=== PATIENT | male | born 1965 | race Caucasian/White ===

== ENCOUNTER 2022-06-25 10:13 | Outpatient (REF) | payer OTHER, SELFPAY ==
[2022-06-25 10:46] LABS: MANUAL DIFF FLAG NO
[2022-06-25 10:50] LABS: Basophils Percent Auto 0.5 % (0-2); Eosinophils Absolute Auto 0.2 X10*3/uL (0.0-0.4); Eosinophils Percent Auto 3.4 % (0-4); Hematocrit 41.1 % (42.0-52.0); Hemoglobin 14.1 g/dl (14.0-18.0); Imm Gran Abs Auto 0.01 X10*3/uL (0.00-0.03); Imm Gran Pct Auto 0.2 % (0.0-0.4); Lymphocytes Absolute Auto 1.4 X10*3/uL (1.2-4.9); Lymphocytes Percent Auto 32.2 % (20-40); Mean Corpuscular HGB Conc 34.3 g/dl (31.0-36.0); Mean Corpuscular Volume 90.3 fL (80.0-98.0); Mean Platelet Volume 9.9 fL (9.4-12.4); Monocytes Absolute Auto 0.4 X10*3/uL (0.1-1.2); Monocytes Percent Auto 9.1 % (2-11); Neutrophils Absolute Auto 2.4 x10*3/uL (2.0-8.3); Neutrophils Percent Auto 54.6 % (45-73); Platelet Count 191 X10*3/uL (160-400); Red Blood Count 4.55 X10*6/uL (4.60-5.80); Red Cell Distribution Width 12.5 % (11.0-16.0); White Blood Count 4.4 X10*3/uL (4.8-10.8)
[2022-06-25 11:34] LABS: Alanine Aminotransferase 22 U/L (0-40); Albumin Level 4.1 g/dL (3.5-5.0); Alkaline Phosphatase 71 U/L (39-117); Anion Gap 12 (12-20); Aspartate Amino Transferase 23 U/L (5-37); Bilirubin Total 0.8 mg/dL (0.0-1.0); Blood Urea Nitrogen 11 mg/dL (9-16); Calcium 8.8 mg/dL (8.4-10.2); Carbon Dioxide 26 mmol/L (22-29); Chloride 106 mmol/L (96-108); Cholesterol 208 mg/dL; Estimated Glomerular Filt Rate > 60; Glucose Fasting 100 mg/dL (60-99); HDL Cholesterol 57 mg/dL; LDL Cholesterol Calculated 135 mg/dl; Potassium 4.3 mmol/L (3.3-5.1); Sodium 140 mmol/L (135-145); Total Protein 7.1 g/dL (6.5-8.0); Triglycerides 83 mg/dL
[2022-06-25 11:40] LABS: Prostate Specific Antigen Scr 15.72 ng/mL (<0.05-4.0); Thyroid Stimulating Hormone 3.17 uIU/mL (0.32-4.0)
== END 2022-06-25 10:14 | disposition home or self-care (01) ==
LOC: HO.10HDL 10:13
PROVIDERS: Visit Provider Internal Medicine
DX: Z00.00 Encounter for general adult medical examination without abnormal findings (principal); Z12.5 Encounter for screening for malignant neoplasm of prostate; Z13.31 Encounter for screening for depression; I10 Essential (primary) hypertension; M54.59 Other low back pain
CPT/HCPCS: 36415; 80053; 80061; 84153; 84443; 85025

== ENCOUNTER → 2022-08-15 13:58 | Outpatient (BNVA) | payer OTHER, SELFPAY | PROVIDERS: PCP Internal Medicine; Visit Provider Urology | DX: N42.9 Disorder of prostate, unspecified (principal); R97.20 Elevated prostate specific antigen [PSA] | CPT/HCPCS: 51798 ==

== ENCOUNTER 2022-09-16 08:01 | Day surgery (SDC) | payer OTHER, SELFPAY ==
[2022-09-11 09:33] VITALS: BMI 26.2
[2022-09-16] VITALS (12 sets, daily range): BP systolic 90–128; BP diastolic 38–78; PULSE 67–79; RESP 16–18; TEMP 36.3–36.7; O2SAT 94–98
--- NOTE | 2022-09-16 08:44 | MHC.SHP ---
Pre-Procedural Eval Section A Date of Service: 09/16/22 The patient is an INPATIENT: No The History & Physical has been completed within 30 days and I have reviewed it.: Yes Section B Chief Complaint: Elevated prostate specific antigen [PSA] Allergies: Allergies Allergy/AdvReac Type Severity Reaction Status Date / Time fexofenadine [From Rivka-D] AdvReac Unknown tachycardia Verified 09/16/22 08:07 pseudoephedrine AdvReac Unknown tachycardia Verified 09/16/22 08:07 [From Rivka-D] Plan Diagnosis/Plan: Unchanged I have reviewed the history and physical and performed a pertinent physical examination on my patient. No changes have occurred unless specified. Transrectal Ultrasound guided biopsy of the prostate. Discussed risks to include but not limited to pain, blood in stool, urine and semen, septicemia, need to repeat biopsy. Time Spent With Patient Time: Total time managing care of this patient today ____ minutes.
[2022-09-16] MEDS: Lactated Ringers 1,000 ML 80 ML IVCONT (08:49)
--- NOTE | 2022-09-16 09:59 | P.CONAN_ITS ---
HPI - Anesthesia Eval Consult details Narrative: elevated psa PMFSH Active Problems Active Problems: All Active Problems (Updated 08/15/22 @ 14:52 by Traci Ferrara MD) Prostate irregularity (Acute) Elevated PSA (Acute) Past Medical History Medical History (Updated 08/15/22 @ 14:52 by Traci Ferrara MD) Elevated PSA Family History Family history of problems with anesthesia: No Surgical History Surgical History (Updated 09/11/22 @ 09:38 by Stacey Romero RN) History of surgery on arm History of tonsillectomy Hx of colonoscopy History of Problems with Anesthesia: No Social History Social History Are you a primary critical care nurse to a significant other at home: No Do you presently have visiting nurse or other home services: No Have you been hit, kicked, punched, or otherwise hurt by someone within the past year? If so, by whom?: No Are you DNR?: No Advance Directives: No Advance Directives Information Provided: Yes Advance Directives on File: No Poor oral hygiene: Yes (missing teeth) Meds Allergies Allergy/AdvReac Type Severity Reaction Status Date / Time fexofenadine [From Rivka-D] AdvReac Unknown tachycardia Verified 09/16/22 08:07 pseudoephedrine AdvReac Unknown tachycardia Verified 09/16/22 08:07 [From Rivka-D] Active Medications: Current Medications Lactated Ringer's (Lr) 1,000 mls @ 80 mls/hr IVCONT .[id number] BELIA Last Admin: 09/16/22 08:49 Dose: 80 mls/hr Exam Exam Date and Time: September 16, 2022 0959 Height,Weight and Vital Signs: Height 5 ft 5 in Weight 71.668 kg Last Vital Signs Temp 98.0 F 09/16/22 08:09 Pulse 71 09/16/22 08:09 Resp 16 09/16/22 08:09 BP 128/78 09/16/22 08:09 Pulse Ox 97 09/16/22 08:09 O2 Del Method Room Air 09/16/22 08:09 Airway Mallampati Class: I TM Dist: >3cm Neck ROM: Full Loose/Missing/Broken Teeth: No Heart: rr Lungs: cta Assessment and Plan Assessment Anesthesia Assessment: Anesthesia Plan Discussed Final Anesthetic Review Family History of Problems with Anesthesia: No History of Problems with Anesthesia: No NPO: Yes ASA Class: I and III Final Preanesthetic Review: No Changes in Pt Med Stat, Meds/Allgs Chart Revie thu, Consent Obtained/Reviewed and Anes Risks/Benef Reviewed Patient Risk: Low Procedure Risk: Low Anesthetic Plan Anesthetic Plan: GA Disposition: Standard PACU
--- NOTE | 2022-09-16 10:25 | W.PM.OPN ---
Operative Note Operative Note Date of Service: 09/16/22 Narrative: PreOperative Diagnosis:? ? Elevated PSA Post Operative Diagnosis:??Elevated PSA Procedure:?1. Transrectal ultrasound guided biopsy of the prostate 12 core 2. Transrectal ultrasound measurement of prostate 3. Transrectal ultrasound guided pudendal nerve block Surgeon:?Dr Traci Ferrara Anesthesia:? GENERAL Indications for procedure: Elevated PSA Procedure: After informed consent was verified the patient was brought into the procedure room and placed on the procedure table in left lateral position. Patient identity confirmed. Preoperative antibiotics confirmed. Safety pause time-out performed. Digital rectal exam performed to dilate rectal sphincter, iodine mixed with lubricant jelly 30 cc placed per rectum. Ultrasound probe was placed per rectum. The prostate was visualized. The prostate was measured height [] cm, width [] cm, length [] cm with a volume of 13 cm. An ultrasound guided pudendal nerve block was performed using 10 cc of 1% lidocaine. A 12 core biopsy was performed from the left base, left mid, left apex and right base, mid, apex 2 biopsies from each section. The ultrasound probe was removed and digital palpation of the prostate for 1-2 minutes for hemostasis was performed. The patient tolerated the procedure well. The patient is instructed to complete his antibiotics and to call for any concerns. Complications: None
[2022-09-16] MEDS: Acetaminophen 325 MG TABLET 650 MG PO (11:10)
[2022-09-16] MEDS: oxyCODONE HCl Immed Release 5 MG TABLET PO (11:11)
[2022-09-16] MEDS: fentaNYL citrate/PF 100 MCG/2 ML VIAL 25 MCG IVPUSH (11:12)
== END 2022-09-16 13:45 | disposition home or self-care (01) ==
PROVIDERS: PCP Internal Medicine; Visit Provider Urology
PROC: (CPT 55700; principal; 2022-09-16 09:30)
DX: C61 Malignant neoplasm of prostate (principal); R97.20 Elevated prostate specific antigen [PSA]; R39.198 Other difficulties with micturition; R33.9 Retention of urine, unspecified; Z88.8 Allergy status to other drugs, medicaments and biological substances
CPT/HCPCS: 55700; 76942; 88305; J1956; J2250; J2405; J3010

== ENCOUNTER → 2022-10-03 15:51 | Outpatient (BNVA) | payer OTHER, SELFPAY | PROVIDERS: PCP Internal Medicine; Visit Provider Urology ==

== ENCOUNTER → 2022-10-22 11:01 | Outpatient (REF) | payer OTHER, SELFPAY ==
--- NOTE | ~2022-10-22 | NM_ITS ---
EXAMINATION: NM BONE SCAN OF THE WHOLE BODY CLINICAL INFORMATION: Malignant neoplasm of prostate. COMPARISON: No existing relevant imaging study available. TECHNIQUE: Multiple gamma scintillation camera images of the whole body were performed 3.5 hours following the intravenous administration of 26 mCi Tc-99m MDP. The radiotracer was injected through left antecubital superficial vein without complications. FINDINGS: In the head, no suspicious focal lesion. Incidental note is made of asymmetric focal increased radiotracer activity in the region of the right maxilla/alveolar process medially, likely represent changes secondary to odontogenic disease. Please correlate clinically. In the thoracic cage and upper extremities, unremarkable. In the spine, unremarkable. In the pelvis, unremarkable. In the lower extremities, unremarkable. No other definite bony abnormalities are noted. The urinary bladder and faint visualization of both kidneys are noted. NM/NM bone scan whole body IMPRESSION: 1. No scintigraphic evidence of osseous metastatic disease. 2. Incidental note is made of asymmetric focal increased radiotracer activity in the region of the right maxilla/alveolar process medially, likely represent changes secondary to odontogenic disease. 3. Follow-up PSMA PET/CT study may be considered for further clarification, if clinically appropriate.
== END ==
LOC: HO.NUCMED 11:01
PROVIDERS: PCP Internal Medicine; Visit Provider Urology
DX: C61 Malignant neoplasm of prostate (principal); C79.51 Secondary malignant neoplasm of bone
CPT/HCPCS: 78306; A9503

== ENCOUNTER → 2022-11-10 08:50 | Outpatient (BNVA) | payer OTHER, SELFPAY | PROVIDERS: PCP Internal Medicine; Visit Provider Urology ==

== ENCOUNTER 2022-12-31 13:01 | Outpatient (AMB) | payer OTHER, SELFPAY ==
--- NOTE | 2022-12-31 13:10 | AM.OFFVISNUR ---
Intake Intake Visit Reasons: Firmagon Injection Allergies fexofenadine [From Rivka-D] Adverse Reaction (Unknown, Verified 10/03/22 15:55) tachycardia pseudoephedrine [From Rivka-D] Adverse Reaction (Unknown, Verified 10/03/22 15:55) tachycardia Office Meds degarelix Performing Provider: Traci Ferrara MD Administered by: Arcelia Aguilar RN on 12/31/22 13:10 Dose Route Admin Location Lot Number Expiration Date [facility] [employer] 240 mg subcut right arm [id number] 11/29/24 [address]-8 [facility] Coding Diagnoses Assessment & Plan Assessment & Plan Orders: Orders AMB Degarelix Injection Practice Supplied Today C61 - Malignant neoplasm of prostate
== END 2022-12-31 13:32 | disposition home or self-care (01) ==
PROVIDERS: PCP Internal Medicine; Visit Provider Urology
DX: C61 Malignant neoplasm of prostate (principal)
CPT/HCPCS: 96402

== ENCOUNTER → 2022-12-31 13:01 | Outpatient (BNVA) | payer OTHER, SELFPAY | PROVIDERS: PCP Internal Medicine; Visit Provider Urology | DX: C61 Malignant neoplasm of prostate (principal) | CPT/HCPCS: 96402; J9155 ==

== ENCOUNTER 2024-02-27 13:07 | Emergency (ER) | payer OTHER, SELFPAY ==
--- NOTE | ~2024-02-27 | XR_ITS ---
EXAMINATION: XR KNEE, LEFT CLINICAL INFORMATION: Left knee pain. Patient felt snapping in knee. COMPARISON: None available. TECHNIQUE: Four views of the left knee. FINDINGS: No fracture or joint effusion appreciated. Well-circumscribed, benign-appearing sclerotic density involving the posterior distal metaphyseal cortex of the femur. No evidence of periosteal reaction. Alignment is anatomic. Joint spaces appear maintained. No abnormal soft tissue calcification. XR/XR knee LT 3V IMPRESSION: No acute finding. Electronically signed by: Zach Mcduffie MD 02/27/2024 02:10 PM EDT
[2024-02-27 13:10] VITALS: BP 131/70; PULSE 76; RESP 16; TEMP 36.5; O2SAT 99; BMI 24.1
--- NOTE | 2024-02-27 13:12 | ED.LOWEXIN ---
HPI - Extremity Injury (Lower) General Chief Complaint: Extremity Injury, Lower Stated Complaint: pain above l knee no inj Time Seen by Provider: 02/27/24 13:35 Source: patient Mode of arrival: ambulatory Limitations: no limitations History of Present Illness ED Provider: negro [facility] Narrative: Patient is a 59-year-old male presenting to the ED with complaint of left knee pain after bending over to pet his dog. States pain increases with flexion. He has been able to bear weight. Denies any numbness/tingling. complaint: knee injury Related Data Allergies Allergy/AdvReac Type Severity Reaction Status Date / Time fexofenadine [From Rivka-D] AdvReac Unknown tachycardia Verified 02/27/24 13:13 pseudoephedrine AdvReac Unknown tachycardia Verified 02/27/24 13:13 [From Rivka-D] morphine AdvReac Vomiting Verified 02/27/24 13:14 Review of Systems Review of Systems: As per HPI. Yes all other systems are reviewed and are negative Constitutional: Constitutional: Reports as per HPI PMFSH Past Medical History Medical History Elevated PSA Surgical History History of surgery on arm History of tonsillectomy Hx of colonoscopy Social History Social History Are you a primary gericare aide to a significant other at home: No Do you presently have visiting nurse or other home services: No Advance Directives: No Advance Directives Information Provided: No Do you have a plan to hurt others: No Plan Physical Exam Vital Signs: Vital Signs: Last Vital Signs Temp 97.7 F 02/27/24 13:10 Pulse 76 02/27/24 13:10 Resp 16 02/27/24 13:10 BP 131/70 02/27/24 13:10 Pulse Ox 99 02/27/24 13:10 O2 Del Method Room Air 02/27/24 13:10 BMI result Body Mass Index 24.1 Vital signs have been reviewed and appear to be correct. Blood pressure normal. Heart rate normal. Respiratory rate normal. Temperature normal. Oxygen saturation normal. Const: General: cooperative, healthy appearing and no acute distress Orientation/consciousness: oriented to person, oriented to place, oriented to time and patient oriented x3 Limitations: no limitations HEENT: Head: Yes normocephalic and Yes atraumatic Ears: external ears normal General nose exam: Normal external nose present Face and sinus: Yes face symmetric Mouth: oropharynx normal and moist mucous membranes Throat: Yes uvula midline Eyes: Pupils: Equal, round and reactive pupils present Neck: Neck: Yes normal visual inspection and Yes supple Resp: Effort & Inspection: normal respiratory effort and able to speak in complete sentences Auscultation: clear to auscultation bilaterally Cardio: Rate: regular rate Rhythm: regular rhythm Heart sounds: S1 normal heart sound present and S2 normal heart sound present GI: Palpation (GI): Soft to palpation and nontender Auscultation: normoactive bowel sounds : General: Yes no CVA tenderness Back/Spine/Pelvis: Back: no CVA tenderness Skin: General skin exam: elasticity normal and turgor normal Neuro: General: oriented to person, oriented to place, oriented to time, patient oriented x3, moves all extremities, no focal motor deficits and CN's II-XI intact bilaterally Cranial nerves: Yes Equal, round and reactive pupils present Cognition (Neuro): normal cognition Extrem: General: Yes full ROM, Yes no pedal edema and Yes no calf tenderness Left lower extremity: knee Details: normal to inspection, tenderness Location: of the proximal fibula, swelling Location: of the proximal fibula, normal ROM and knee ligament exam normal Psych: Mental Status: mental status grossly normal Affect: normal affect Thought process: Normal thought process present Course Course Course Narrative: This is an RME: Additional HPI, ROS, PE not included below will be deferred to primary provider. RME assessment and note performed by: Tiara Jain PA-C This is a 56-qmzs-kso-male, with a hx of prostate cancer, who presents to the ER with complaints of left knee pain since yesterday. Pt was bending down to greet his dog and felt a pop in his left leg, has been able to partially bear weight on his left knee. Plan: xray knee Medical Decision Making Medical Decision Making MDM Narrative: Patient is a 59-year-old male presenting to the ED with complaint of left knee pain after bending over to pet his dog. On exam patient is awake, A+Ox3, VS WNL, afebrile, normal neurological exam without focal deficits, physical exam findings as above. Given reported symptoms and physical exam findings, initial differential includes strain, sprain, tendonitis. Unlikely fracture. X-ray knee notable for no acute fractures. My interpretation is in agreement with the radiologist's interpretation. Patient placed in PUSHPA wrap in ED. Discussed that he will need to follow up with ortho. States he has f/u with PCP for same complaint on the 10th. Return precautions discussed. Tylenol/ibuprofen. patient verbalized understanding of and agreement with plan. Differential Diagnosis Differential Diagnoses: The differential diagnosis associated with the presentation includes as per mdm Independent Interpretation I performed an independent interpretation of an: Plain X-Ray Interpretation: no acute fractures left knee Radiology Impression Discussion of test interpretation with radiology: I have reviewed the radiologist's reading. Radiologist Impression: XR/XR knee LT 3V IMPRESSION: No acute finding. External Record Review External record reviewed: Inpatient record, Office record and Outpatient record Discharge Plan Discharge Clinical Impression: Pain of left fibula Patient Disposition: Home, Self-Care Instructions: Knee Pain (ED) Additional Instructions: You have been evaluated in the emergency department today for knee pain. Your evaluation did not find evidence of medical conditions requiring emergent intervention at this time. We have provided an PUSHPA wrap for you to use while your knee heals. Please rest, ice, and elevate your leg, and resume normal activities as tolerated. We recommend you take 600mg ibuprofen every 6 hours or 650mg Tylenol every 6 hours as needed for pain. If Needed you can alternate these medications as they take 1 medication every 3 hours. For instance at noon take ibuprofen, then at 3:00 p.m. take Tylenol, then at 6:00 p.m. take ibuprofen. Please schedule an appointment for follow-up with orthopedics this week. Return to the emergency department if you experience worsening pain, numbness, tingling, change of color in your leg, or any other concerning symptoms. Referrals: [facility] [Provider Group] Print Language: Kosovan
[2024-02-27 14:51] VITALS: BP 118/78; PULSE 62; RESP 18; TEMP 36.8; O2SAT 97
== END 2024-02-27 14:52 | disposition home or self-care (01) ==
PROVIDERS: Emergency Provider Emergency Medicine Emergency Medical Services; PCP Internal Medicine
DX: M25.562 Pain in left knee (principal)
CPT/HCPCS: 73562; 99282; 99283

== ENCOUNTER 2024-03-08 11:01 | Outpatient (AMB) | payer MEDICAID, SELFPAY ==
--- NOTE | 2024-03-08 11:06 | MHC.OFFVIS ---
Vital Signs 03/08/24 11:13 Height 5 ft 5 in Weight 145 lb BMI 24.1 Intake Visit Reasons: [employer] CARE MANAGEMENT- ED f/u Left fibula pain Intake Note: Idalia 59 year old male who presents today for a new patient evaluation of lower left leg pain. Patient reports that he kneeled down and had felt a snap inside his knee, he had instant pain. He presented to [facility] where xrays were taken, suggested an MRI and was referred to orthopedics. Currently his pain is now radiating up his leg to his lower back as well as numbness and tingling. States this morning he was experiencing pain on his left knee. He has discomfort with sitting and walking. No previous tx. He uses icing and elevation to help with his pain. Allergies fexofenadine [From Rivka-D] Adverse Reaction (Unknown, Verified 03/08/24 11:15) tachycardia pseudoephedrine [From Rivka-D] Adverse Reaction (Unknown, Verified 03/08/24 11:15) tachycardia morphine Adverse Reaction (Verified 03/08/24 11:15) Vomiting Medication List - Last Reconciled 03/08/24 by Irene Gonzalez PA-C No Known Home Meds HPI HPI [employer] CARE MANAGEMENT- ED f/u Left fibula pain: Details: 59-year-o gentleman presents to the office today for an injury he sustained to his left calf. He states he was bending down about 3 weeks ago to feed the dogs when he went to stand up he felt a sharp pain in the left calf and also felt a snap. He developed immediate pain and discomfort with ambulation. He was seen in the emergency department on February 26 where he had x-rays which were negative for acute or chronic abnormalities. He was referred to our office for ortho eval. [facility] Medical History Elevated PSA Surgical History History of surgery on arm Hx of colonoscopy History of tonsillectomy Social History (Updated 03/08/24 @ 11:11 by YAEL Pang) Are you a primary palliative care coordinator to a significant other at home: No Do you presently have visiting nurse or other home services: No Patient Tobacco Use Status: Never used Tobacco Current occupational status: unemployed Review of Systems Const All systems reviewed & are unremarkable except as noted in HPI and below Physical Exam Vital Signs: BMI result Body Mass Index 24.1 Const General: cooperative and no acute distress Orientation/consciousness: patient oriented x3 Resp Effort & Inspection: normal respiratory effort and able to speak in complete sentences Cardio Peripheral pulses: Peripheral pulses 2+ throughout Neuro General: patient oriented x3 Extrem Other: Left knee is normal inspection no erythema. No tenderness. He does have some tenderness over the anterior tibialis which also extends into the lateral muscle belly of the gastroc muscle. No palpable defect. He can plantar and dorsiflex without significant pain or weakness. He is neurovascularly intact. Assessment & Plan Assessment & Plan (1) Strain of left calf muscle: Code(s): S86.812A - Strain of other muscle(s) and tendon(s) at lower leg level, left leg, initial encounter Category: Medical Plan: I explained to the patient and his partner today the extent of his injury. I feel as though he has sustained a calf strain which does not require surgical intervention. I recommend a course of physical therapy to work on stretching and strengthening. He will limit activities as needed and increase as tolerated. He will see me back if symptoms persist or worsen. Orders: Orders PT Evaluation and Treatment Today S86.812A - Strain of other muscle(s) and tendon(s) at lower leg level, left leg, initial encounter Coding Level of Care Code New Pt Level 3 (38988) Complex EM visit Add On G2211 Diagnoses Strain of left calf muscle S86.814M
[2024-03-08 11:13] VITALS: BMI 24.1
== END 2024-03-08 11:34 | disposition home or self-care (01) ==
PROVIDERS: PCP Internal Medicine; Visit Provider Physician Assistant
DX: S86.812A Strain of other muscle(s) and tendon(s) at lower leg level, left leg, initial encounter (principal)
CPT/HCPCS: 99203

== ENCOUNTER → 2024-03-08 11:01 | Outpatient (BNVA) | payer OTHER, SELFPAY | PROVIDERS: PCP Internal Medicine; Visit Provider Physician Assistant | DX: S86.812A Strain of other muscle(s) and tendon(s) at lower leg level, left leg, initial encounter (principal) | CPT/HCPCS: 99212 ==

== ENCOUNTER 2024-04-12 20:07 | Emergency (ER) | payer MEDICAID, SELFPAY ==
[2024-04-12 20:10] VITALS: BP 137/82; PULSE 80; RESP 18; TEMP 36.7; BMI 26.8
== END 2024-04-13 01:13 | disposition left against medical advice (07) ==
PROVIDERS: Emergency Provider Emergency Medicine Emergency Medical Services; PCP Internal Medicine
DX: R21 Rash and other nonspecific skin eruption (principal)
CPT/HCPCS: 99281

== ENCOUNTER 2024-05-26 16:41 | Outpatient (REF) | payer MEDICAID, SELFPAY ==
[2024-05-26 16:55] LABS: MANUAL DIFF FLAG NO
[2024-05-26 17:10] LABS: Basophils Percent Auto 0.4 % (0-2); Eosinophils Absolute Auto 0.2 X10*3/uL (0.0-0.4); Eosinophils Percent Auto 3.5 % (0-4); Hematocrit 39.3 % (42.0-52.0); Hemoglobin 13.8 g/dl (14.0-18.0); Imm Gran Abs Auto 0.01 X10*3/uL (0.00-0.03); Imm Gran Pct Auto 0.2 % (0.0-0.4); Lymphocytes Absolute Auto 1.8 X10*3/uL (1.2-4.9); Lymphocytes Percent Auto 33.6 % (20-40); Mean Corpuscular HGB Conc 35.1 g/dl (31.0-36.0); Mean Corpuscular Hemoglobin 31.2 pg (27.0-33.0); Mean Corpuscular Volume 88.7 fL (80.0-98.0); Monocytes Absolute Auto 0.4 X10*3/uL (0.1-1.2); Monocytes Percent Auto 7.9 % (2-11); Neutrophils Percent Auto 54.4 % (45-73); Platelet Count 173 X10*3/uL (160-400); Red Blood Count 4.43 X10*6/uL (4.60-5.80); Red Cell Distribution Width 12.5 % (11.0-16.0); White Blood Count 5.5 X10*3/uL (4.8-10.8)
[2024-05-26 17:43] LABS: Alanine Aminotransferase 21 U/L (0-40); Albumin Level 4.2 g/dL (3.5-5.0); Alkaline Phosphatase 88 U/L (39-117); Anion Gap 8 (12-20); Aspartate Amino Transferase 24 U/L (5-37); Bilirubin Total 0.5 mg/dL (0.0-1.0); Blood Urea Nitrogen 14 mg/dL (9-16); Calcium 8.6 mg/dL (8.4-10.2); Carbon Dioxide 30 mmol/L (22-29); Chloride 106 mmol/L (96-108); Cholesterol 179 mg/dL (<200); Estimated Glomerular Filt Rate > 60; Glucose Random 99 mg/dL (60-115); HDL Cholesterol 57 mg/dL (>40); LDL Cholesterol Calculated 101 mg/dL (<100); Sodium 140 mmol/L (135-145); Total Protein 7.6 g/dL (6.5-8.0); Triglycerides 107 mg/dL (<150)
[2024-05-26 17:57] LABS: Ferritin 127 ng/mL (20-250); Thyroid Stimulating Hormone 3.29 uIU/mL (0.32-4.0)
== END 2024-05-26 16:42 | disposition home or self-care (01) ==
LOC: HO.LAB 16:41
PROVIDERS: PCP Internal Medicine; Visit Provider Internal Medicine
DX: E78.00 Pure hypercholesterolemia, unspecified (principal); R32 Unspecified urinary incontinence; R53.83 Other fatigue; Z85.46 Personal history of malignant neoplasm of prostate
CPT/HCPCS: 36415; 80053; 80061; 82728; 84443; 85025

== ENCOUNTER 2025-04-19 08:21 | Day surgery (SDC) | payer MEDICAID, SELFPAY ==
--- OUTSIDE RECORDS SUMMARY | 2024-03-18 13:30 | XMS_ITS | Encounter Summary ---
Author Organization [facility] Address [address] [place] [address] Care Team Providers Care Order Expediter Name Role Phone Dave Piña MD Primary Care Provider Encounter Details Date Type Department Care Team (Late st Contact Info) Description 03/18/2024 1:30 PM EDT Hospital Encounter TH HISTORIC ENCOUNTERS [facility] CONVERSION ONLY Irnee Gonzalez PA [address] [facility] [place] [address] [phone] (Work) Social History Tobacco Use Types Packs/Day Years Used Date Smoking Tobacco: Never Assessed Sex and Gender Information Value Date Recorded Sex Assigned at Not on file Legal Sex Male 12:43 PM EST Gender Identity Not on file Sexual Orientation Not on file documented as of this encounter Functional Status * Calculated C-SSRS Risk Score (Lifetime/Recent) Answer Date of Assessment Author No Risk Indicated 03/13/2025 6:48 PM EDT Angela Poole RN * [place] Suicide Severity Rating Scale (Screener/Recent Self-Report) Question Answer Date of Assessment Author 1. Wish to be (Past 1 Month) No 025 6:48 PM EDT Angela Poole RN 2. Non-Specific Active Suici андрей Thoughts (Past 1 Month) No 03/13/2025 6:48 PM EDT Randi Poole RN 6. Suicidal Behavior (Lifetime) No 10/13/202 5 6:48 PM EDT Angela Poole RN documented as of this encounter Plan of Treatment Not on file documented as of this encounter Visit Diagnoses Not on filedocumented in this encounter Care Teams Order Expediter Relationship Specialty Start Date End Date Dave Piña MD [address] [place] [address] PCP - General Internal Medicine 12/09/21 documented as of this encounter
--- OUTSIDE RECORDS SUMMARY | 2024-11-09 11:20 | XMS_ITS ---
Author Organization [facility] Address [address] [place] [id number] Care Team Providers Care Pick Up Truck Driver Name Role Phone Jayna Alamo Primary Care Provider Unavailab George Ramsay [phone] REASON FOR VISIT colon screening Encounters Encounter Location Date Provider Diagnosis [facility] [address] [place] [phone] 11/09/2024 George Kirkland Plan Of Treatment Next Appt Details Provider Name:George Kirkland , 04/19/2025 09:40:00 AM, [address] [place] [address], [phone], Progress Notes * GLADIS VILLAVICENCIO MDOB: 3 (60 yo M)Acc No.[id number]:11/09/2024 Progress Notes Patient: GLADIS MENDEZ Provider: Robin Kirkland MD :1965 A ge:59 Y S ex:Male Date:11/09/2024 Address:[address] [place], [place] [id number] Pcp:Jayna Alamo Subjective: * Chief Complaints: * 1 . Colon screening. * Medical History: Objective: * Vitals: Assessment: Plan: * Treatment: * * The named appointment provid er may or may not be the originator of this progress note, and it is not deemed complete until electronically signed by the appointment provider. Sign off status: Pending * Provider: Robin Kirkland MD Date: 0 11/09/2024 Generated for Ruth brewer/Kalie/eTransmitting on: 1 11:54 AM EDT
--- OUTSIDE RECORDS SUMMARY | 2025-03-24 11:55 | XMS_ITS | Patient Health Record ---
Author Organization [facility] Address [address] [place] [address] Care Team Providers Care Cnc Manufacturing Engineer Name Role Phone Jayna Alamo Primary Care Provider Unavailab George Ramsay Unavailable [phone] Allergies Allergen (clinical drug ingredient) Drug/Non Drug Allergy documented on EMR Reaction Allergy Type Onset Date Status morphine Morphine Unknown Drug Allergy Active fexofenadine / pseudoephedrine Rivka-D 12 Hour Unknown Drug Allergy Active Reason For Referral Referring Provider First Name Jayna Referring Provider Last Name Jasmeet Referring Provider Speciality Internal M edicine Referred Organization [facility] Referred Provider George Kirkland Referred Address [address],[place], [place],[address], Referred Provider Specialty Gastroentero logy Referral Priority Routine Social History Tobacco Use: Social History Observation Description Date Details (start date - stop date) Never Smoker NA - NA Tobacco Control (Standard) Question Answer Notes Tobacco use: Nonsmoker AUDIT-C (Standard) Question Answer Notes Did you have a drink containing alcohol in the p ast year? No Points 0 Interpretation Negative Problems Problem Type SNOMED Code ICD Code Onset Dates Problem Status W/U Status Risk Notes Problem Colon cancer screening (249332006) Colon cancer screening (Z12.11) Active confirmed Problem Preprocedural examination (462434740850126) Preprocedural examination (Z01.818) Active confirmed Vital Signs Blood pressure diastolic 77 mm Hg 01/17/2025 Height 65 in 01/17/2025 Blood pressure systolic 111 mm Hg 01/17/2025 Weight 157 lbs 01/17/2025 BMI 26.12 kg/m2 01/17/2025 Procedures Procedure Date Ordered Date Performed Result Body Sit e COLONOSCOPY 01/17/2025 N/A Encounters Encounter Location Date Provider Diagnosis [facility] [address] [place] [address] 01/17/2025 George Kirkland Colon cancer screeni ng Z12.11 and Preprocedural examination Z01.818 [facility] [address] [place] [address] 11/03/2024 George Kirkland [facility] [address] [place] [address] 11/08/2024 George Kirkland [facility] [address] [place] [address] 11/18/2024 George Kirkland Assessments Encounter Date Diagnosis (ICD Code) Assessment Notes Treatment Notes Treatment Clinical Notes Section Notes 01/17/2025 Colon cancer screening (ICD-10 - Z12.11) Overall, Gladis appears quite well. Given his age and excellent clinical appearance, and his last colonoscopy being over 10 years ago, I did recommend a follow-up colonoscopy for further screening purposes. We did review the rationale for this in regard to colon cancer prevention. Full consent has been obtained for this, including risks of bleeding and perforation. The procedure will be done with monitored anesthesia care. Gladis was comfortable with this plan. Thank you again for allowing me to participate in Gladis's care. I shall continue to keep you advised of his progress. 01/17/2025 Preprocedural examination (ICD-10 - Z01.818) Overall, Gladis appears quite well. Given his age and excellent clinical appearance, and his last colonoscopy being over 10 years ago, I did recommend a follow-up colonoscopy for further screening purposes. We did review the rationale for this in regard to colon cancer prevention. Full consent has been obtained for this, including risks of bleeding and perforation. The procedure will be done with monitored anesthesia care. Gladis was comfortable with this plan. Thank you again for allowing me to participate in Gladis's care. I shall continue to keep you advised of his progress. Plan Of Treatment Pending Test Test Name Order Date COLONOSCOPY 01/17/2025 Next Appt Details Provider Name:George Kirkland , 04/19/2025 09:40:00 AM, [address] [facility] , [place], [place], [id number], Insurance Providers Payer Name Payer Address Payer Phone Subscriber Number Group Number Insured Name Patient Relationship to Insured Coverage Start Date Coverage End Date MEDICAID OF [employer] [address] [place] [phone] [id number] GLADIS VILLAVICENCIO Self - patient is the insured Medical (General) History Medical History History ICD Code Denies [place],DM,CVA,Lung disease,renal dise ase Prostate cancer 2022 as below Negative screening colonoscopy at approx age 48 in [place] Surgical History Surgery Date(Month/Year) Prostatectomy for cancer 04/2023 at [facility]
--- OUTSIDE RECORDS SUMMARY | 2025-03-24 11:55 | XMS_ITS | Clinical Summary ---
Author Organization [facility] [place] [address] Phone Care Team Providers Care Grad Intern Name Role Phone Dave Piña MD Primary Care Provider Allergies Active Allergy Reactions Criticality Noted Date Comments Fexofenadine-Pseudoephedrine Hives 018 Morphine 03/13/2025 Medications diclofenac (VOLTAREN) 1 % topical gel Apply 4 g topically 4 (four) times a day for 7 days. 100 g 03/13/20 25 025 Discontinued diclofenac (VOLTAREN) 1 % topical gel Apply 4 g topically 4 (four) times a day for 7 days. 100 g 03/13/20 25 025 Active Problems Problem Noted Date Diagnosed Date Chronic neck pain 11/05/2017 Encounters Date Type Department Care Team Description 03/13/2025 8:25 PM EDT - 03/13/2025 9:27 PM EDT Emergency [facility] [address] [place] [id number] Tendinitis of right forearm (Primary Dx) Discharge Disposition: Home or Self Care from Last 3 Months Medical History Medical History Date Comments Prostate CA (CMS/HCC V24, CMS/HCC V28) Social History Tobacco Use Types Packs/Day Years Used Date Smoking Tobacco: Never Assessed Sex and Gender Information Value Date Recorded Sex Assigned at Not on file Legal Sex Male 12:43 PM EST Gender Identity Not on file Sexual Orientation Not on file Obstetrics History Last Filed Vital Signs Vital Sign Reading Time Taken Comments Blood Pressure 133/79 03/13/2025 6:51 PM EDT Pulse 68 03/13/2025 6:51 PM EDT Temperature 36.8 C (98.2 F) 03/13/2025 6:51 PM EDT Respiratory Rate 20 03/13/2025 6:51 PM EDT Oxygen Saturation 100% 03/13/2025 6:51 PM EDT Inhaled Oxygen Concentration - - Weight 65.8 kg (145 lb) 03/13/2025 6:51 PM EDT Height 165.1 cm (5' 5 ) 03/13/2025 6:51 PM EDT Body Mass Index 24.13 03/13/2025 6:51 PM EDT Plan of Treatment Health Maintenance Due Date Last Done Comments Pneumococcal Vaccine: 50+ Years (1 of 1 - PCV) 2013 Zoster Vaccines (1 of 2) 2013 Colorectal Cancer Screening: Colonoscopy 11/05/2021 11/06/2011 HIV Screening 05/14/2022 Hepatitis C Screening 05/14/2022 Social Influencers of Health Screening 05/14/2022 Depression Screening 06/01/2024 COVID-19 Vaccine (4 - 2024-2 6 season) 2025 04/19/2021, 08/10/2020, 07/11/2020 Influenza Vaccine (#1) 2025 Cholesterol Screening (Lipid Panel) 11/29/2029 11/29/2024, 11/05/2017 DTaP,Tdap,and Td Vaccines (2 - Td or Tdap) 06/26/2032 06/26/2022 RSV Immunization Adult Patients (1 - 1-dose 75+ series) 2038 HIB Vaccines Aged Out No longer eligi ble based on patient's age to complete this topic HPV Vaccines Aged Out No longer eligi ble based on patient's age to complete this topic Hepatitis A Vaccines Aged Out No long er eligible based on patient's age to complete this topic Hepatitis B Vaccines Aged Out No long er eligible based on patient's age to complete this topic IPV Vaccines Aged Out No longer eligi ble based on patient's age to complete this topic MMR Vaccines Aged Out No longer eligi ble based on patient's age to complete this topic Meningococcal ACWY Vaccine Aged Out N o longer eligible based on patient's age to complete this topic Meningococcal B Vaccine Aged Out No l onger eligible based on patient's age to complete this topic RSV Immunization Patients Under 20 months Aged Out No longer eligible b ased on patient's age to complete this topic Varicella Vaccines Aged Out No longer eligible based on patient's age to complete this topic Procedures Procedure Name Priority Date/Time Associated Diagnosis Comments XR ELBOW 3+ VIEWS RIGHT STAT 03/13/2025 8:32 PM EDT LIPID PANEL WITH REFLEX TO DIRECT LDL Routine 11/29/2024 12:42 PM EDT Pure hypercholesterolemia Trochanteric bursitis of right hip Unspecified urinary incontinence Routine general medical examination at a health care facility Personal history of malignant neoplasm of prostate HM COLONOSCOPY Routine 11/06/2011 from Last 3 Months or Most Recently Relevant to Health Maintenance Results * XR Elbow 3+ Views Right (03/13/2025 8:32 PM EDT) Anatomical Region Laterality Modality Upper Extremities, Elbow Right Radiogr aphic Imaging 03/14/2025 8:53 AM EDT Impressions 03/14/2025 8:53 AM EDT Impression: No significant abnormality identified in the right elbow. Telerad COLE ([id number]) -------- FINAL REPORT -------- Dictated By: Hyacinth Valencia Dictated Date: 03/14/2025 08:53 ET Assigned Physician: Hyacinth Valencia Reviewed and Electronically Signed By: Hyacinth Valencia Signed Date: 03/14/2025 08:53 ET Workstation ID: [id number] Transcribed By: Self Edit Transcribed Date: 03/14/2025 08:53 ET Narrative 03/14/2025 8:53 AM EDT History: Right elbow pain and swelling after cleaning out garage. Findings: AP, oblique and lateral views of the right elbow. The osseous structures are intact and the articular spaces are well-maintained. No displacement of the fat pads is seen to suggest a joint effusion. The overlying soft tissues are unremarkable. Procedure Note Hyacinth Valencia MD - 03/14/2025 History: Right elbow pain and swelling after cleaning out garage. Findings: AP, oblique and lateral views of the right elbow. The osseous structures are intact and the articular spaces arewell-maintained. No displacement of the fat pads is seen to suggest ajoint effusion. The overlying soft tissues are unremarkable. IMPRESSION: Impression: No significant abnormality identified in the right elbow. Telerad COLE ([id number]) -------- FINAL REPORT -------- Dictated By: Hyacinth Valencia Dictated Date: 03/14/2025 08:53 ET Assigned Physician: Hyacinth Valencia Reviewed and Electronically Signed By: Hyacinth Valencia Signed Date: 03/14/2025 08:53 ET Workstation ID: [id number] Transcribed By: Self Edit Transcribed Date: 03/14/2025 08:53 ET us Dann Hardy MD IMG XR PROCEDURES Final Res ult * Lipid panel with reflex to direct LDL (11/29/2024 12:42 PM EDT) Cholesterol 167 0 - 200 mg/dL LAB CHEMISTRY METHOD 11/29/2024 3:[address] [facility] Triglycerides 92 0 - 150 mg/dL LAB CHEMISTRY METHOD 11/29/2024 3:[address] [facility] HDL 54 >=40 mg/dL LAB CHEMISTRY METHOD 11/29/2024 3:[address] [facility] LDL Calculated 95 0 - 100 mg/dL LAB CHEMISTRY METHOD 11/29/2024 3:[address] [facility] VLDL Cholesterol Sonido 18.4 mg/dL LAB CHEMISTRY METHOD 11/29/2024 3:[address] [facility] Non HDL Chol. (LDL+VLDL) 113 <145 mg/dL LAB CHEMISTRY METHOD 11/29/2024 3:[address] [facility] Chol/HDL Ratio 3.1 0.0 - 4.4 LAB CHEMISTRY METHOD 11/29/2024 3:[address] [facility] Blood Venous blood specimen / Unknown Venipuncture / Unknown 11/29/2024 12:42 PM EDT 11/29/2024 1:10 PM EDT Jayna Alamo MD LAB BLOOD ORDERABLES Final Re sult [facility] [address] [place] [address], [place] [phone] * Colonoscopy (11/06/2011) Colonoscopy No interpretation , abstracted Anatomical Region Laterality Modality Other Historical Provider HEALTH MAINTENANCE Final Result from Last 3 Months or Most Recently Relevant to Health Maintenance Insurance MEDICAID - [place] Care Teams Grad Intern Relationship Specialty Start Date End Date Dave Piña MD [address] [place], [place] PCP - General Internal Medicine 12/09/21
--- OUTSIDE RECORDS SUMMARY | 2025-03-24 11:55 | XMS_ITS | Clinical Summary ---
Author Organization [facility] Address [address] [place] [id number] Phone Care Team Providers Care Webbing Inspector Name Role Phone Jayna Alamo MD Primary Care Provider Flavio Lima MD Unavailable [phone] Social History Tobacco Use Types Packs/Day Years Used Date Smoking Tobacco: Never Assessed Sex and Gender Information Value Date Recorded Sex Assigned at Male 06/19/2023 2:14 PM EST Legal Sex Male 1:52 PM EST Gender Identity Male 06/19/2023 2:14 PM EST Sexual Orientation Straight 06/19/2023 2: 14 PM EST Plan of Treatment Not on file Medical Devices Not on file Insurance [facility] HMO [facility] HMO [facility] HMO [facility] HMO Care Teams Webbing Inspector Relationship Specialty Start Date End Date Jayna Alamo MD [address] [place] [address] [place] [address] PCP - General 06/19/23 Flavio Lima MD [address] [place] [address] Urology 04/01/23 Additional Source Comments The information contained in this document represents components of the legal health record. It is not the complete legal health record.[facility]
--- NOTE | 2025-04-17 10:19 | P.CONAN_ITS ---
Documented by User: Jigna Davey NP 04/17/25 10:20 HPI - Anesthesia Eval Consult details Narrative: 60 yr old male for colonoscopy PMFSH Active Problems Active Problems: All Active Problems Strain of left calf muscle (Acute) Prostate cancer (Acute) Prostate irregularity (Acute) Elevated PSA (Acute) Past Medical History Medical History Chemotherapy management, encounter for Elevated PSA Family History Family history of problems with anesthesia: No Surgical History Surgical History Hx of prostatectomy Hx of prostate biopsy History of surgery on arm Hx of colonoscopy History of tonsillectomy History of Problems with Anesthesia: No Social History Social History Are you a primary healthcare advisory services manager to a significant other at home: No Do you presently have visiting nurse or other home services: No Patient Tobacco Use Status: Never used Tobacco Have you been hit, kicked, punched, or otherwise hurt by someone within the past year? If so, by whom?: No Are you DNR?: No Advance Directives: No Advance Directives Information Provided: Yes Current occupational status: unemployed Meds Allergies Allergy/AdvReac Type Severity Reaction Status Date / Time fexofenadine (From Rivka-D) AdvReac Unknown tachycardia Verified 04/12/24 20:11 pseudoephedrine (From AdvReac Unknown tachycardia Verified 04/12/24 20:11 Rivka-D) morphine AdvReac Vomiting Verified 04/12/24 20:11 Home Medications ?Medication ?Instructions ?Recorded ?Confirmed ?Last Taken ?Type No Known Home Meds 03/08/24 04/17/25 Un known History Assessment and Plan Final Anesthetic Review Family History of Problems with Anesthesia: No History of Problems with Anesthesia: No Documented by User: Ramon Mares MD 04/19/25 09:18 [facility] Past Medical History Medical History Chemotherapy management, encounter for Elevated PSA Functional capacity: independent ambulation Surgical History Surgical History Hx of prostatectomy Hx of prostate biopsy History of surgery on arm Hx of colonoscopy History of tonsillectomy Social History Social History Are you a primary healthcare advisory services manager to a significant other at home: No Do you presently have visiting nurse or other home services: No Patient Tobacco Use Status: Never used Tobacco Have you been hit, kicked, punched, or otherwise hurt by someone within the past year? If so, by whom?: No Are you DNR?: No Advance Directives: No Advance Directives Information Provided: Yes Current occupational status: unemployed Meds Allergies Allergy/AdvReac Type Severity Reaction Status Date / Time fexofenadine (From Rivka-D) AdvReac Unknown tachycardia Verified 04/12/24 20:11 pseudoephedrine (From AdvReac Unknown tachycardia Verified 04/12/24 20:11 Rivka-D) morphine AdvReac Vomiting Verified 04/12/24 20:11 Home Medications ?Medication ?Instructions ?Recorded ?Confirmed ?Last Taken ?Type No Known Home Meds 03/08/24 04/17/25 Un known History Exam Exam Date and Time: 04/19/2025 Airway Mallampati Class: II TM Dist: >3cm Heart: normal Lungs: normal Other: normal Assessment and Plan Final Anesthetic Review NPO: Yes ASA Class: II Final Preanesthetic Review: No Changes in Pt Med Stat, Meds/Allgs Chart Reviewed, Consent Obtained/Reviewed and Anes Risks/Benef Reviewed Patient Risk: Low Procedure Risk: Low Anesthetic Plan Anesthetic Plan: MAC: Disposition: Standard PACU
[2025-04-17 11:55] VITALS: BMI 26.1
[2025-04-19 08:36] VITALS: BP 108/72; PULSE 78; RESP 20; TEMP 36.9; O2SAT 97; BMI 23.3
[2025-04-19] MEDS: Lactated Ringers 1,000 ML 100 ML IVCONT (08:46)
[2025-04-19 10:38] VITALS: BP 93/55; PULSE 93; RESP 16; TEMP 36.7; O2SAT 98
--- NOTE | 2025-04-19 10:40 | P.BOP_ITS ---
Brief Operative Note Date of Service: 04/19/25 Pre-op diagnosis: Screening Post-op diagnosis: other (Colon polyp) Procedure: Colonoscopy to the cecum and TI with bx/removal of polyp Surgeon: George Kirkland MD Anesthesia: MAC Was an Hat Stock Laminating Machine Operator used for this Procedure?: No Estimated blood loss (mL): 2.0 Pathology: other (A. Ascending colon polyp) Condition: stable Disposition: PACU
[2025-04-19 10:53] VITALS: BP 90/64; PULSE 72; RESP 16; O2SAT 96
[2025-04-19 11:08] VITALS: BP 100/70; PULSE 68; RESP 16; O2SAT 98
--- NOTE | 2025-04-19 11:10 | OP_ITS ---
DATE OF SERVICE: 04/19/2025 SURGEON: George Kirkland MD INDICATIONS: The patient presents for evaluation of colorectal cancer screening. Full consent has been obtained from him for this, including risks of bleeding and perforation. PREOPERATIVE DIAGNOSIS: Colorectal cancer screening. POSTOPERATIVE DIAGNOSIS: PROCEDURE PERFORMED: Colonoscopy to the cecum and terminal ileum with biopsy and removal of polyp. ESTIMATED BLOOD LOSS: COMPLICATIONS: ANESTHESIA: Medication used, monitored anesthesia care. ASSISTANTS: SPECIMENS: POSTOPERATIVE DIAGNOSES: Colorectal cancer screening, small colon polyp, sigmoid diverticulosis, and internal hemorrhoids. DESCRIPTION OF PROCEDURE: The patient was placed in the left lateral decubitus position. The digital rectal exam revealed no abnormalities. The Olympus video pediatric colonoscope was entered into the rectum and advanced easily to the cecum. Once in the cecum, I did identify normal-appearing cecal pouch with appendiceal orifice and a normal-appearing ileocecal valve. The terminal ileum was cannulated and appeared normal. Scope withdrawn back in the colon. The entire cecum and ileocecal valve appeared normal. The scope was then slowly withdrawn assessing all mucosal surfaces carefully. For the most part, preparation was excellent throughout the colon, but did require some irrigation and suctioning. In the proximal ascending colon, there was a flat, approximately 3 or 4 mm polyp, which was biopsied and completely removed with cold biopsy forceps. I did not visualize any other polyps, colitis, nor angiodysplasia. There was a mild amount of sigmoid diverticulosis. In the rectum, scope was retroflexed visualizing internal hemorrhoids, but no other pathology. The rectal mucosa appeared normal. Scope was straightened and withdrawn from the patient. He tolerated the procedure well and was returned to recovery area in stable condition. IMPRESSION: 1. Small colon polyp. 2. Diverticulosis. 3. Internal hemorrhoids. PLAN: The results of biopsy will be checked. Given the finding of the polyp and some areas of limited prep despite an overall good visualization, I would recommend a repeat colonoscopy in 5 years. He will otherwise see me as needed. MD NAWAF Huffman/EFRAIN / [id number]
[2025-04-19 11:23] VITALS: BP 104/68; PULSE 70; RESP 20; TEMP 36.9; O2SAT 98
== END 2025-04-19 13:37 | disposition home or self-care (01) ==
PROVIDERS: PCP Internal Medicine; Visit Provider Internal Medicine
PROC: 0DJD8ZZ Inspection of Lower Intestinal Tract, Via Natural or Artificial Opening Endoscopic (ICD-10-PCS; CPT 45378; principal; 2025-04-19 09:40)
DX: Z12.11 Encounter for screening for malignant neoplasm of colon (principal); D12.2 Benign neoplasm of ascending colon; K57.30 Diverticulosis of large intestine without perforation or abscess without bleeding; K64.8 Other hemorrhoids; Z85.46 Personal history of malignant neoplasm of prostate; Z92.21 Personal history of antineoplastic chemotherapy; Z88.5 Allergy status to narcotic agent; Z88.8 Allergy status to other drugs, medicaments and biological substances
CPT/HCPCS: 45380; 88305; J2003; J2704; J3010